=== PATIENT | male | born 1990 | race Caucasian/White ===

== ENCOUNTER 2017-03-31 03:58 | Emergency (ER) | payer OTHER ==
[~2017-03-31] VITALS: Ht 182.9 cm; Wt 113.4 kg
[~2017-03-31 03:58] MED LIST: CYCL10TA9 PO; NAPR500T4 PO
--- NOTE | 2017-03-31 04:38 | ED General ---
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 PT REPORTS WAS INVESTIGATING A HOUSE, WAS CLIMBING IN THROUGH A WINDOW AND CUT HIS THUMB ON BROKEN GLASS. 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 He has continued active bleeding. The injury occurred when he was crawling through a window and punctured/ lacerated his hand on a piece of broken glass. He does not believe there are any foreign bodies but he is uncertain. He is up-to-date on his tetanus immunization. He denies any other injuries. He retains sensation and full range of motion in the thumb. (BRUCE BARRIOS MD) Allergies and Home Medications Allergies Coded Allergies: cetirizine (Verified Allergy, Unknown, 11/06/15) Home Medications Cyclobenzaprine HCl 10 Mg Tablet, 10 MG PO Q8H, #15 Prescribed by: FERDINAND ALBERTO on 11/06/15 0135 Naproxen 500 Mg Tablet, 500 MG PO BID, #20 Prescribed by: FERDINAND ALBERTO on 11/06/15 0135 Constitutional: no symptoms reported EENTM: no symptoms reported Respiratory: no symptoms reported Cardiovascular: no symptoms reported Gastrointestinal: no symptoms reported Genitourinary: no symptoms reported Musculoskeletal: no symptoms reported Skin: see HPI Psychiatric/Neurological: No Symptoms Reported Hematologic/Lymphatic: No Symptoms Reported (BRUCE BARRIOS MD) Past Meutqva-Wyiqjp-Hgdzrt Hx Patient Social History Alcohol Use: Denies Use Recreational Drug Use: No Smoking Status: Never a Smoker Recent Foreign Travel: No Contact w/Someone Who Travel: No Recent Infectious Disease Expo: No Recent Hopitalizations: No Physical Abuse: No Sexual Abuse: No Mistreated: No Fear: No (BRUCE BARRIOS MD) Immunizations Up To Date Tetanus Booster (TDap): Unknown (BRUCE BARRIOS MD) Seasonal Allergies Seasonal Allergies: Yes (BRUCE BARRIOS MD) Surgeries History of Surgeries: No (BRUCE BARRIOS MD) Respiratory History of Respiratory Disorde: No (BRUCE BARRIOS MD) Cardiovascular History of Cardiac Disorders: No (BRUCE BARRIOS MD) Neurological History of Neurological Disord: No (BRUCE BARRIOS MD) Reproductive System Hx Reproductive Disorders: No Sexually Transmitted Disease: No HIV/AIDS: No (BRUCE BARRIOS MD) Gastrointestinal History of Gastrointestinal Di: No (BRUCE BARRIOS MD) Musculoskeletal History of Musculoskeletal Dis: No (BRUCE BARRIOS MD) Endocrine History of Endocrine Disorders: No (BRUCE BARRIOS MD) HEENT History of HEENT Disorders: No (BRUCE BARRIOS MD) Cancer History of Cancer: No (BRUCE BARRIOS MD) Psychosocial History of Psychiatric Problem: No Suicide Risk Score: 0 (BRUCE BARRIOS MD) Integumentary History of Skin or Integumenta: No (BRUCE BARRIOS MD) Blood Transfusions History of Blood Disorders: No Adverse Reaction to a Blood Tr: No (BRUCE BARRIOS MD) Physical Exam Vital Signs Vital Sign - Last 12Hours 03/31/17 04:03 Temp 98.0 Pulse 98 Resp 20 B/P (MAP) 156/113 (127) Pulse Ox 99 O2 Delivery Room Air (JOAN FINNEY MEDICAL STUDENT) Vital Signs Capillary Refill : Less Than 3 Seconds (BRUCE BARRIOS MD) General Appearance: No Apparent Distress HEENT: Normal ENT Inspection Extremity: Normal Capillary Refill, Other (2 cm laceration at the medial base of the right thumb with mild active bleeding. 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 Norm as Tested Skin: Normal Color, Warm/Dry (BRUCE BARRIOS MD) Skin: Other (4cm laceration to medial palmar aspect of proximal R thumb) ( JOAN FINNEY MEDICAL STUDENT) Laceration Repair : Other Wound Location 4cm laceration to medial palmar aspect of proximal R thumb Wound Length (cm): 4 Wound's Depth, Shape: superficial Wound Explored: clean Irrigated w/ Saline (ccs): 50 Betadine Prep?: Yes Anesthesia: 1% Lidocaine Volume Anesthetic (ccs): 5 Wound Debrided: minimal Suture: Prolene Suture Size: 4-0 Number of Sutures: 6 Sterile Dressing Applied?: Yes Progress Wound was irrigated thoroughly with NS and area was prepped with betadine and alcohol swabs. 5cc of 1% lidocaine was used to anesthetize the area. 6 4-0 proline simple interrupted sutures were placed to reapproximate the wound. Triple abx ointment and bandage was placed over the wound. Pt tolerated well, no complications. Pt understands to return in 7-10 days for suture removal. (JOAN FINNEY MEDICAL STUDENT) Progress/Results/Core Measures Suspected Sepsis Recent Fever Within 48 Hours: No Infection Criteria Present: None New/Unexplained Altered Menta: No Sepsis Screen: No Definite Risk Sepsis Diagnosis: SIRS Temperature:98.0 Pulse: 98 Respiratory Rate: 20 Blood Pressure 156 /113 Mean: 127 (BRUCE BARRIOS MD) Results/Orders Vital Signs/I&O Vital Sign - Last 12Hours 03/31/17 04:03 Temp 98.0 Pulse 98 Resp 20 B/P (MAP) 156/113 (127) Pulse Ox 99 O2 Delivery Room Air (JOAN FINNEY MEDICAL STUDENT) Vital Signs/I&O Capillary Refill : Less Than 3 Seconds (BRUCE BARRIOS MD) Blood Pressure Mean: 127 Progress Note : Time: 04:38 Progress Note X-ray will be obtained prior to repairing the wound to ensure no last foreign body is retained. (BRUCE BARRIOS MD) Departure Impression Impression: Primary Impression: Laceration of right hand Qualified Codes: S61.411A - Laceration without foreign body of right hand, initial encounter Disposition: 01 HOME, SELF-CARE Condition: Improved Departure-Patient Inst. Referrals: MALLORY RIGGS MD (PCP) Primary Care Physician MITCHELL SAVAGE (Family) Primary Care Physician Patient Instructions: Laceration Repair With Stitches (DC) Add. Discharge Instructions: Keep the wound clean and dry except for normal hand washing and showering. Avoid submersion or soiled environments until sutures are removed. You may cover sutures with a Band-Aid or other dressing to prevent disrupting the sutures. You may use antibiotic ointment or Vaseline to prevent dressing from sticking to the wound. You may take Tylenol and/or ibuprofen for pain. Have the sutures removed in 7-10 days. Monitor for signs of infection such as increasing redness, increasing pain, increasing swelling, fever, or puslike drainage. Return to care promptly few notice any of these symptoms. All discharge instructions reviewed with patient and/or family. Voiced understanding. BRUCE BARRIOS MD Mar 31, 2017 04:38 JOAN FINNEY MEDICAL STUDENT Mar 31, 2017 05:44
[2017-03-31 05:40] VITALS: BP 155/106
--- NOTE | 2017-03-31 07:49 | Diagnostic Imaging Report ---
INDICATION: Lacerations at the thumb. FINDINGS: No fracture or retained opaque foreign body. IMPRESSION: No fracture or retained opaque foreign body. Dictated by: Dictated on workstation # [id number]
== END 2017-03-31 05:40 | disposition home or self-care (01) ==
LOC: EDUNIT# 03:58 → ER 04:00
DX: S61.011A Laceration without foreign body of right thumb without damage to nail, initial encounter (principal); W25.XXXA Contact with sharp glass, initial encounter
CPT/HCPCS: 12001; 73120